=== PATIENT | female | born 1990 | race Caucasian/White ===

== ENCOUNTER 2016-10-21 10:27 | Emergency (ER) | payer OTHER ==
[2016-10-21] MEDS ORDERED: Zofran 4 MG/2 ML VIAL IV ONE (10:54)
[2016-10-21] MEDS ORDERED: Sodium Chloride 0.9% 1000 ML 1,000 ML IV SCH (11:00)
[2016-10-21] MEDS ORDERED: Zofran 4 MG/2 ML VIAL ONE (11:01)
[2016-10-21] MEDS ORDERED: Sodium Chloride 0.9% 1000 ML 1,000 ML ONE (11:02)
--- NOTE | 2016-10-21 11:05 | ERPHSYRPT ---
- History of Present Illness Time Seen by Provider: 10/21/16 10:31 Historian: patient, family Exam Limitations: no limitations Patient Subjective Stated Complaint: pt here for vomiting for 3 days more than 10 times,no loose stools, no fever , pt hasd positive test this week Triage Nursing Assessment: pt alert, walked in with water, pt asked not to drink water at this time, pt anxious, resp easy, skin w/d,pink, no and pain, abd soft Physician History: patient presenting with N&V since 10/03/16; no abdominal pain; LMP 08/29/16; had positive test on 10/03/16; hasn't seen anyone for since tested positive; [id number] 1; hasn't been able to keep anything down fo r2-3 days including water; no change in BM's; last sex a week ago- no pain or bleeding; last smoked pot 1 week ago; can't smoke cigarettes now as makes her sick; no travel; no other complaints Timing/Duration: week(s) (4 onset), constant (2-3 days), gradual onset, worse Activities at Onset: none Quality: other (no pain) Pain Radiation: no radiation Severity of Pain-Max: none Severity of Pain-Current: none Modifying Factors: Improves With: eating, vomiting, other (smoking) Associated Symptoms: loss of appetite, nausea, vomiting Previous symptoms: no prior history Allergies/Adverse Reactions: No Known Drug Allergies Allergy (Verified 10/21/16 10:54) Home Medications: Alprazolam 1 mg [Xanax 1 mg] 1 tab PO DAILY 05/06/14 [History] Venlafaxine HCl [Effexor] 150 mg PO DAILY 05/06/14 [History] Omeprazole [Prilosec] 20 mg PO DAILY 10/24/15 [History] Hydrocodone/APAP 10/325 mg [[place] 10/325 MG Tablet] 1 ea DAILY 10/21/16 [ History] Loratadine [Claritin] 10 mg DAILY 10/21/16 [History] Hx Tetanus, Diphtheria Vaccination/Date Given: Yes Hx Influenza Vaccination/Date Given: Yes Hx Pneumococcal Vaccination/Date Given: No Immunizations Up to Date: Yes - Review of Systems Constitutional: No Symptoms Eyes: No Symptoms Ears, Nose, & Throat: No Symptoms Respiratory: No Cough, No Dyspnea, No Wheezing Cardiac: No Chest Pain, No Edema, No Palpitations, No Syncope Abdominal/Gastrointestinal: Nausea, Vomiting, No Abdominal Pain, No Diarrhea, No Constipation, No Hematemesis, No Hematochezia Genitourinary Symptoms: No Symptoms Musculoskeletal: No Symptoms Skin: No Symptoms Neurological: No Symptoms Psychological: No Symptoms Endocrine: No Symptoms Hematologic/Lymphatic: No Symptoms Immunological/Allergic: No Symptoms - Past Medical History Pertinent Past Medical History: Yes Neurological History: Migraines ENT History: No Pertinent History Cardiac History: No Pertinent History Respiratory History: Asthma Endocrine Medical History: No Pertinent History Musculoskeletal History: No Pertinent History GI Medical History: GERD, Gallbladder Disease History: No Pertinent History Psycho-Social History: Anxiety, Bipolar Female Reproductive Disorders: No Pertinent History - Past Surgical History Past Surgical History: Yes Neuro Surgical History: No Pertinent History Cardiac: No Pertinent History Respiratory: No Pertinent History Gastrointestinal: Cholecystectomy Musculoskeletal: Other Female Surgical History: Section, Other Other Surgical History: etopic ,rt hand - Social History Smoking Status: Current every day smoker How long have you smoked: YRS Exposure to second hand smoke: Yes Alcohol Use: Socially Drug Use: marijuana Patient Lives Alone: No Significant Family History: no pertinent family hx - Female History Hx Last Menstrual Period: august 29 Hx Now: Yes - Nursing Vital Signs Nursing Vital Signs: Initial Vital Signs Temperature 98.1 F Temperature Source Oral Pulse Rate 66 Respiratory Rate 16 Blood Pressure [] 118/82 Pain Intensity 0 - Physical Exam General Appearance: mild distress (nauseated), alert, obese Eye Exam: PERRL/EOMI, eyes nml inspection, No photophobia Ears, Nose, Throat Exam: normal ENT inspection, TMs normal, pharynx normal, dry mucous membranes Neck Exam: normal inspection, non-tender, supple, full range of motion, No meningismus, No JVD Respiratory Exam: normal breath sounds, lungs clear, airway intact, No chest tenderness, No respiratory distress Cardiovascular Exam: regular rate/rhythm, normal heart sounds, normal peripheral pulses, capillary refill 2-3 sec, No murmur, No edema Gastrointestinal/Abdomen Exam: soft, normal bowel sounds, No tenderness, No distention, No guarding, No pulsatile mass, No rebound Pelvic Exam: normal external exam, other (Uterus enlarged midline consistent with dates of gravid uterus; cx closed; no FHT audible to me but good on US), No adnexal tenderness, No adnexal mass, No mass, No cervical motion tenderness, No vaginal bleeding, No uterine tenderness, No vaginal discharge Rectal Exam: deferred Back Exam: normal inspection, normal range of motion, No CVA tenderness, No rash Extremity Exam: normal inspection, normal range of motion, pedal edema, No jelena 's sign Neurologic Exam: alert, oriented x 3, cooperative, hardboard grinder II-XII nml as tested, normal mood/affect, nml cerebellar function, nml station & gait, sensation nml, other (reflexes normal) Skin Exam: normal color, warm, dry, No rash, No petechiae Lymphatic Exam: No adenopathy SpO2 Interpretation: normal SpO2: 97 Oxygen Delivery: Room Air - Course Nursing assessment & vital signs reviewed: Yes - Radiology Ultrasound Exam Pelvis Ultrasound: tele radiology report, Other (IUP 7 weeks adn 4 days; FHR = 157) Ordered Tests: Active Orders 24 hr Category Date Time Status Cath for Specimen-Straight STAT Care 10/21/16 10:54 Inactive IV Insertion STAT Care 10/21/16 10:54 Active NPO (ED) STAT Care 10/21/16 10:54 Active Pelvic Exam Assist STAT Care 10/21/16 10:54 Active Re-Check Vital Signs STAT Care 10/21/16 10:54 Active OB TRANSVAGINAL [US] Stat Exams 10/21/16 10:56 Completed CBC W DIFF Stat Lab 10/21/16 11:09 Completed CMP Stat Lab 10/21/16 11:09 Completed CULTURE,URINE Stat Lab 10/21/16 11:20 Received HCG QUALITATIVE,SERUM Stat Lab 10/21/16 11:09 Completed HCG, Quantitative (Inhouse) Stat Lab 10/21/16 11:09 Completed UA W/ MICROSCOPIC Stat Lab 10/21/16 11:20 Completed Wet Prep Stat Lab 10/21/16 12:37 Uncollected Medication Summary Generic Name Dose Route Start Last Admin Trade Name Freq PRN Reason Stop Dose Admin Sodium Chloride 1,000 mls @ 250 mls/hr 10/21/16 11:00 10/21/16 11:03 Sodium Chloride 0.9% 1000 Ml IV 11/20/16 10:59 250 mls/hr .Q4H SHARON Administration Discontinued Medications Generic Name Dose Route Start Last Admin Trade Name Roseann PRN Reason Stop Dose Admin Ondansetron HCl 4 mg 10/21/16 10:54 10/21/16 11:03 Zofran 4 Mg/2 Ml Vial IV 10/21/16 10:55 4 mg STAT ONE Administration Ondansetron HCl Confirm 10/21/16 11:01 Zofran 4 Mg/2 Ml Vial Administered 10/21/16 11:02 Dose 4 mg .ROUTE .STK-MED ONE Lab/Rad Data: Laboratory Result Diagrams 10/21/16 11:09 10/21/16 11:09 Laboratory Results 10/21/16 10/21/16 10/21/16 Range/Units 11:20 11:09 11:09 WBC (4.0-10.5) K/mm3 RBC (4.1-5.4) M/mm3 Hgb (12.0-16.0) gm/dl Hct (35-47) % MCV (78-100) fl MCH (26-32) pg MCHC (32-36) g/dl RDW (11.5-14.0) % Plt Count (150-450) K/mm3 MPV (6-9.5) fl Gran % (36.0-66.0) % Lymphocytes % (24.0-44.0) % Monocytes % (0.0-12.0) % Eosinophils % (0.00-5.0) % Basophils % (0.0-0.4) % Basophils # (0-0.4) Sodium 137 (136-145) mEq/L Potassium 3.7 (3.5-5.1) mEq/L Chloride 101 (98-107) mEq/L Carbon Dioxide 21.4 (21-32) mEq/L Anion Gap 17.9 H (5-15) MEQ/L BUN 11 (9-20) mg/dL Creatinine 0.69 (0.55-1.30) mg/dl Estimated GFR > 60 ML/MIN Glucose 95 (70-110) MG/DL Calcium 9.2 (8.5-10.1) mg/dL Total Bilirubin 0.60 (0.2-1.0) mg/dL AST 17 (15-37) U/L ALT 21 (12-78) U/L Alkaline Phosphatase 94 (46-116) U/L Serum Total Protein 8.3 H (6.4-8.2) gm/dL Albumin 4.0 (3.4-5.0) g/dL Beta HCG, Quant 83782 H (0-6) IU/L Serum , Qual POSITIVE (Negative) Ur Collection Type VOID Urine Color YELLOW (YELLOW) Urine Appearance CLEAR (CLEAR) Urine pH 5.0 (5-6) Ur Specific [place] 1.020 (1.005-1.025) Urine Protein TRACE (Negative) Urine Ketones MODERATE (NEGATIVE) Urine Blood NEGATIVE (0-5) [place]/ul Urine Nitrite NEGATIVE (NEGATIVE) Urine Bilirubin NEGATIVE (NEGATIVE) Urine Urobilinogen NORMAL (0-1) mg/dL Ur Leukocyte Esterase TRACE (NEGATIVE) Urine Microscopic RBC 0-2 (0-2) /HPF Urine Microscopic WBC 2-5 (0-5) /HPF Ur Epithelial Cells FEW (FEW) /HPF Urine Bacteria FEW (NEGATIVE) /HPF Urine Mucus MODERATE (NEGATIVE) /HPF Urine Glucose NEGATIVE (NEGATIVE) mg/dL Specimen Received 10/21/16 1120 10/21/16 Range/Units 11:09 WBC 9.5 (4.0-10.5) K/mm3 RBC 4.51 (4.1-5.4) M/mm3 Hgb 12.4 (12.0-16.0) gm/dl Hct 38.3 (35-47) % MCV 84.9 (78-100) fl MCH 27.5 (26-32) pg MCHC 32.4 (32-36) g/dl RDW 17.4 H (11.5-14.0) % Plt Count 309 (150-450) K/mm3 MPV 11.1 H (6-9.5) fl Gran % 69.1 H (36.0-66.0) % Lymphocytes % 20.4 L (24.0-44.0) % Monocytes % 6.6 (0.0-12.0) % Eosinophils % 3.5 (0.00-5.0) % Basophils % 0.4 (0.0-0.4) % Basophils # 0.04 (0-0.4) Sodium (136-145) mEq/L Potassium (3.5-5.1) mEq/L Chloride (98-107) mEq/L Carbon Dioxide (21-32) mEq/L Anion Gap (5-15) MEQ/L BUN (9-20) mg/dL Creatinine (0.55-1.30) mg/dl Estimated GFR ML/MIN Glucose (70-110) MG/DL Calcium (8.5-10.1) mg/dL Total Bilirubin (0.2-1.0) mg/dL AST (15-37) U/L ALT (12-78) U/L Alkaline Phosphatase (46-116) U/L Serum Total Protein (6.4-8.2) gm/dL Albumin (3.4-5.0) g/dL Beta HCG, Quant (0-6) IU/L Serum , Qual (Negative) Ur Collection Type Urine Color (YELLOW) Urine Appearance (CLEAR) Urine pH (5-6) Ur Specific [place] (1.005-1.025) Urine Protein (Negative) Urine Ketones (NEGATIVE) Urine Blood (0-5) [place]/ul Urine Nitrite (NEGATIVE) Urine Bilirubin (NEGATIVE) Urine Urobilinogen (0-1) mg/dL Ur Leukocyte Esterase (NEGATIVE) Urine Microscopic RBC (0-2) /HPF Urine Microscopic WBC (0-5) /HPF Ur Epithelial Cells (FEW) /HPF Urine Bacteria (NEGATIVE) /HPF Urine Mucus (NEGATIVE) /HPF Urine Glucose (NEGATIVE) mg/dL Specimen Received reviewed - Progress Progress: improved (after meds), re-examined (after IV fluids and meds) Progress Note: 10/21/16 11:08 family at bedside; will hydrate with IV fluids; give Zofran for N&V; check labs ; do pelvic exam; get US to evaluate the and recheck 10/21/16 11:09 discussed smoking cessation and to D/C THC 10/21/16 11:30 recheck after US, IV fluids and meds; still slightly nauseous but no emesis; shared results of US with patient and family; HCG pos; other labs pending; will recheck; PUS shows FHR 157 and 7 weeks and 4 days gestation 10/21/16 12:06 patient tolerated pelvic well; exam wnl; nausea resolved; no emesis; will give ice chips and crackers and recheck 10/21/16 12:41 rechecked; HCG Quant = [id number]; patient tolerated crackers and ice chips with water without emesis; treatment pland, d/c instructions given Counseled pt/family regarding: lab results, diagnosis, need for follow-up, rad results, smoking cessation - Departure Time of Disposition: 12:42 Departure Disposition: Home Clinical Impression: Hyperemesis, Condition: Stable Critical Care Time: No Referrals: SULTANA LR [Primary Care Provider] - Instructions: Hyperemesis Gravidarum, Diet Additional Instructions: clear diet; yogurt; gatorade; crackers; call LMD for followup and recheck Follow-up with family doctor as directed. Call for appointment. Return if any problems. If you smoke please stop. Call or follow up with your family doctor for assistance if you need it to stop. Please wear your seatbelt when driving. Have a nice day. Thank you for allowing us to participate in your care today. :o) Dr Riki Finney Prescriptions: Ondansetron [Zofran Odt] 4 mg PO Q4-6HPRN PRN #14 tab.rapdis PRN Reason: Nausea
[2016-10-21 11:22] LABS: BASOPHIL % 0.4 % (0.0-0.4); Eosinophil % 3.5 % (0.00-5.0); Granulocytes % 69.1 % (36.0-66.0); Lymphocytes % 20.4 % (24.0-44.0); Mean Cell Volume 84.9 fl (78-100); Mean Corpuscular Hemoglobin 27.5 pg (26-32); Mean Platelet Volume 11.1 fl (6-9.5); Monocytes % 6.6 % (0.0-12.0); Platelet Count 309 K/mm3 (150-450); Red Blood Count 4.51 M/mm3 (4.1-5.4); Red Cell Distribution Width 17.4 % (11.5-14.0); White Blood Count 9.5 K/mm3 (4.0-10.5)
[2016-10-21 11:24] LABS: ADD URINE CULTURE? YES (NO); Bilirubin NEGATIVE (NEGATIVE); Blood NEGATIVE Ery/ul (0-5); COMPLETE URINE MICROSCOPIC? YES; Collection Type VOID; Glucose NEGATIVE (NEGATIVE); Leukocyte Esterase TRACE (NEGATIVE)
[2016-10-21 11:40] LABS: Bacteria FEW /HPF (NEGATIVE); Epithelial Cells FEW /HPF (FEW); Mucus MODERATE /HPF (NEGATIVE)
[2016-10-21 12:07] LABS: ALKALINE PHOSPHATASE 94 U/L (46-116); ANION GAP 17.9 MEQ/L (5-15); BLOOD UREA NITROGEN 11 mg/dL (9-20); CHLORIDE 101 mEq/L (98-107); Carbon Dioxide 21.4 mEq/L (21-32); Glucose 95 MG/DL (70-110); HCG, Quantitative (Inhouse) 83337 IU/L (0-6); Potassium 3.7 mEq/L (3.5-5.1); SGOT/AST 17 U/L (15-37); SGPT/ALT 21 U/L (12-78); SODIUM 137 mEq/L (136-145); Total Protein 8.3 gm/dL (6.4-8.2)
--- NOTE | 2016-10-21 12:14 | XRAY ---
Indication: History ectopic . Two-dimensional transvaginal early OB ultrasound was performed. Comparison: None for this . There is a single intrauterine gestational sac with presence of a single pole and yolk sac. Mean sac diameter is 2.50 cm corresponding to 7 weeks 1 day. Mean crown-rump length is 1.46 cm corresponding to 7 weeks 6 days. heart rate 158 bpm. No abnormal subchorionic fluid. Left and right ovaries unremarkable. No suspicious adnexal mass or free fluid. Impression: Single viable intrauterine measuring 7 weeks 4 days. Expected date of confinement is June 05, 2017.
[2016-10-21 12:53] VITALS: BP 114/70; PULSE 72; O2SAT 98
[2016-10-21 14:28] LABS: CHLAMYDIA DNA NEGATIVE
== END 2016-10-21 12:53 | disposition home or self-care (01) ==
LOC: ED 10:27
DX: O21.0 Mild hyperemesis gravidarum (principal)
CPT/HCPCS: 36000; 36415; 76817; 80053; 81000; 84702; 84703; 85025; 87086; 87490; 87590; 96360; 96361; 96374; 99284; J2405

== ENCOUNTER 2017-03-02 14:05 | Observation (INO) | payer OTHER ==
[2017-03-02 16:16] LABS: Collection Type CLEAN CATCH; Leukocyte Esterase TRACE (NEGATIVE)
[2017-03-02 16:17] LABS: Bilirubin NEGATIVE (NEGATIVE); COMPLETE URINE MICROSCOPIC? YES; Glucose NEGATIVE (NEGATIVE)
[2017-03-02 16:23] LABS: Bacteria FEW /HPF (NEGATIVE); Epithelial Cells MANY /HPF (FEW); Mucus MANY /HPF (NEGATIVE)
[2017-03-02 17:02] VITALS: BP 110/59; PULSE 88
== END 2017-03-02 16:45 | disposition home or self-care (01) ==
LOC: MED SURG 14:05 → UNDOADMOB 14:05 → UNDODISOB 16:45
PROVIDERS: ADMIT Family Medicine; ATTEND Family Medicine
DX: Z34.82 Encounter for supervision of other normal pregnancy, second trimester (principal)
CPT/HCPCS: 80307; 81000; G0378

== ENCOUNTER 2017-05-24 00:18 | Inpatient (IN) | payer OTHER ==
[2017-05-24] MEDS ORDERED: Lactated Ringers 1,000 ML IV ONE (12:53)
[2017-05-24 13:38] LABS: BASOPHIL % 0.3 % (0.0-0.4); Basophil (Absolute #) 0.03 (0-0.4); Eosinophil (Absolute #) 0.19 (0-0.5); Granulocyte Absolute (ANC) 7.02 (1.4-6.9); Granulocytes % 73.1 % (36.0-66.0); Hematocrit 35.8 % (35-47); Hemoglobin 11.4 gm/dl (12.0-16.0); Lymphocyte (Absolute #) 1.65 (1.0-4.6); Lymphocytes % 17.2 % (24.0-44.0); Mean Cell Volume 90.4 fl (78-100); Mean Corpuscular Hgb Concent. 31.8 g/dl (32-36); Mean Platelet Volume 11.3 fl (6-9.5); Monocyte (Absolute #) 0.71 (0.0-1.3); Monocytes % 7.4 % (0.0-12.0); Platelet Count 239 K/mm3 (150-450); Red Blood Count 3.96 M/mm3 (4.1-5.4); Red Cell Distribution Width 15.5 % (11.5-14.0); White Blood Count 9.6 K/mm3 (4.0-10.5)
[2017-05-24 13:40] LABS: Mean Corpuscular Hemoglobin 28.7 pg (26-32)
[2017-05-24 14:15] LABS: ALBUMIN 2.6 g/dL (3.4-5.0); ALKALINE PHOSPHATASE 161 U/L (46-116); BLOOD UREA NITROGEN 5 mg/dL (9-20); CHLORIDE 104 mEq/L (98-107); Creatinine 1 0.63 mg/dl (0.55-1.30); EST GLOMERULAR FILTRATION RATE > 60 ML/MIN; Glucose 92 MG/DL (70-110); SGOT/AST 12 U/L (15-37); SGPT/ALT 15 U/L (12-78); SODIUM 136 mEq/L (136-145); Total Protein 7.4 gm/dL (6.4-8.2)
[2017-05-24] MEDS ORDERED: TYLENOL 325 MG PO PRN (15:16)
[2017-05-24] MEDS ORDERED: Tums EX 750 MG PO SCH (15:30)
[2017-05-24] MEDS ORDERED: Lactated Ringers 1,000 ML IV SCH (16:00)
[2017-05-24 19:44] LABS: Appearance SLIGHTLY CLOUDY (CLEAR); Bilirubin NEGATIVE (NEGATIVE); Blood NEGATIVE Ery/ul (0-5); Glucose NEGATIVE (NEGATIVE); Ketones NEGATIVE (NEGATIVE); Leukocyte Esterase NEGATIVE (NEGATIVE); Nitrite NEGATIVE (NEGATIVE); Protein,Urine Dip NEGATIVE (Negative); Specific Gravity 1.015 (1.005-1.025); Urobilinogen NORMAL mg/dL (0-1)
[2017-05-24 21:55] LABS: Hematocrit 34.4 % (35-47); Hemoglobin 10.8 gm/dl (12.0-16.0); Mean Cell Volume 90.8 fl (78-100); Mean Corpuscular Hgb Concent. 31.4 g/dl (32-36); Mean Platelet Volume 11.5 fl (6-9.5); Platelet Count 233 K/mm3 (150-450); Red Blood Count 3.79 M/mm3 (4.1-5.4); Red Cell Distribution Width 15.6 % (11.5-14.0); White Blood Count 9.2 K/mm3 (4.0-10.5)
[2017-05-24 22:01] LABS: Mean Corpuscular Hemoglobin 28.4 pg (26-32)
[2017-05-24 22:11] LABS: INR 1.04 (0.8-3.0)
[2017-05-24 22:14] LABS: PTT 24.9 SECONDS (25.3-37.0)
[2017-05-25 00:25] LABS: Amphetamine,Urine NEG. (NEGATIVE); Barbiturate,Urine NEG. (NEGATIVE); Benzodiazepine,Urine NEG. (NEGATIVE); Cocaine,Urine NEG. (NEGATIVE); Methadone,Urine NEG. (NEGATIVE); Opiate,Urine NEG. (NEGATIVE); PCP,Urine NEG. (NEGATIVE); THC,Urine POS. (NEGATIVE)
[2017-05-25] MEDS ORDERED: Lactated Ringers 1,000 ML IV SCH (05:00)
[2017-05-25] MEDS ORDERED: Lactated Ringers 1,000 ML IV ONE (05:00)
[2017-05-25] MEDS ORDERED: Reglan 10 MG/2 ML IV SCH (05:30)
[2017-05-25] MEDS ORDERED: Pepcid 20 MG VIAL IV SCH (05:30)
[2017-05-25] MEDS ORDERED: KEFZOL 1 GM ONE (06:18)
[2017-05-25] MEDS ORDERED: DEMEROL 50 MG ONE (08:31)
[2017-05-25] MEDS ORDERED: Narcan 0.4 MG/ML IV PRN (09:00)
[2017-05-25] MEDS ORDERED: Nubain 10 MG/ML IV PRN (09:00)
[2017-05-25] MEDS ORDERED: Anucort-HC SUPPOSITORY PR PRN (09:00)
[2017-05-25] MEDS ORDERED: MORPHINE SULFATE 2 MG INJ IV PRN (09:00)
[2017-05-25] MEDS ORDERED: CLARITIN 10 MG PO PRN (09:00)
[2017-05-25] MEDS ORDERED: DEMEROL 50 MG IV PRN (09:00)
[2017-05-25] MEDS ORDERED: HOLD NARCOTIC ANALGESICS AND SEDATIVES X24 HR MC PRN (09:00)
[2017-05-25] MEDS ORDERED: CORTISONE 1% CREAM TP PRN (09:00)
[2017-05-25] MEDS ORDERED: Zofran 4 MG/2 ML VIAL IV PRN (09:00)
[2017-05-25] MEDS ORDERED: LANSINOH 40 GM TOP PRN (09:00)
[2017-05-25] MEDS ORDERED: BENADRYL 50 MG/ML IV PRN (09:00)
[2017-05-25] MEDS ORDERED: TYLENOL EXTRA STRENGTH 500 MG PO PRN (09:00)
[2017-05-25] MEDS ORDERED: Dulcolax 10 MG SUPP PR PRN (09:00)
[2017-05-25] MEDS: FERREX 150 PO SCH (11:59)
[2017-05-25] MEDS: Colace 100 MG PO SCH ×2 (11:59→21:39)
[2017-05-25] MEDS ORDERED: Adacel Vial IM ONE (12:00)
--- NOTE | 2017-05-25 12:27 | OP ---
SURGERY DATE/TIME: 05/25/2017 0708 PREOPERATIVE DIAGNOSES: 1) History of prior section. 2) Anti-E antibody syndrome. 3) Gestational hypertension. 4) Desires permanent sterilization. POSTOPERATIVE DIAGNOSES: 1) History of prior section. 2) Anti-E antibody syndrome. 3) Gestational hypertension. 4) Desires permanent sterilization. PROCEDURES: 1) Repeat section. 2) Bilateral tubal ligation. SURGEON: Caio Cosme M.D. ESTIMATED BLOOD LOSS: 400 cc. URINE OUTPUT: 150 cc clear straw-colored urine. ANESTHESIA: Spinal by Aldo Aldana CRNA. SPECIMENS: Placenta was sent for pathology. Bilateral fallopian tube segments. DESCRIPTION OF PROCEDURE: After informed written consent was obtained, the patient was taken to the operating room. She underwent spinal anesthesia and was prepped and draped in the usual sterile fashion. After adequate level of anesthesia was assessed, a low transverse skin incision was made by knife and carried down to the subcutaneous fat to the level of the fascia. The fascia was nicked on both sides of the midline and extended using curved Puente scissors in horizontal fashion. The superior free edge of the fascia was grasped with Marielos clamps and the underlying rectus muscles were dissected free. The same was repeated inferiorly. The peritoneal cavity was entered bluntly and extended in horizontal fashion. Bladder blade was then created and reflected over the lower uterine segment. A transverse uterine incision was made by knife and carried down to the level of amniotic membranes which were artificially ruptured. Clear fluid was encountered. A viable male delivered from the vertex presentation with a strong cry immediately upon delivery. The cord was clamped and cut and he was handed off to the awaiting nursery team. The placenta was removed from the uterine cavity. The uterus was exteriorized. The uterine cavity was wiped free of blood and clot with lap sponge. Uterine incision was closed with #1 chromic in a running locked fashion with good closure and good hemostasis. Next, the left fallopian tube was identified and grasped with July. Electrocautery was used to make a window in the mesosalpinx. Proximal and distal ends were then ligated with chromic ties. Interceding tube segment was dissected free with Metzenbaum scissors. Free edge of the fallopian tube was then cauterized on both segments. The same was repeated on the right side with no complications. The posterior cul-de-sac was wiped free of blood and clot with moist lap sponge and the uterus was returned to the peritoneal cavity. Again the uterine incision was inspected and noted to be hemostatic with good closure. Lateral gutters were wiped free of blood and clot. Next, the fascia was closed with 0 Vicryl in a running locked fashion with good closure and good hemostasis. Subcutaneous fat was irrigated with warm, sterile saline and any areas of bleeding were cauterized with electrocautery. The skin layer was closed with 4-0 undyed Vicryl in running subcuticular fashion. Steri-Strips and occlusive dressing were placed over the incision and the patient was transferred to the recovery in excellent condition.
[2017-05-25 15:05] LABS: AB ID Interp Anti-E
[2017-05-25] MEDS ORDERED: Astramorph-Pf 5 MG/10 ML IV ONE (15:09)
[2017-05-25] MEDS ORDERED: Ephedrine Sulfate 50 MG/ML IV ONE (15:09)
[2017-05-25] MEDS ORDERED: TORAdol 30 mg Injection IV ONE (15:09)
[2017-05-25] MEDS ORDERED: Naropin 0.5% 30 ML VIAL IJ ONE (15:09)
[2017-05-25] MEDS ORDERED: Pitocin 10 UNITS/ML IV ONE (15:09)
[2017-05-25] MEDS ORDERED: Epinephrine Preservative Free 1 MG/ML IJ ONE (15:09)
[2017-05-25] MEDS: MOTRIN 400 MG PO PRN (15:51)
[2017-05-25 17:51] LABS: ABO TYPING AB; RH TYPING POSITIVE
[2017-05-25 17:52] LABS: Antibody Screen POSITIVE (NEGATIVE)
[2017-05-25] MEDS: Dextrose 5%-Lr IV Solution 1000 ML 1,000 ML IV SCH (18:41)
[2017-05-25] MEDS: PERCOCET TABLET 5/325MG PO PRN (20:19)
[2017-05-26] MEDS: Dextrose 5%-Lr IV Solution 1000 ML 1,000 ML IV SCH (02:36)
[2017-05-26] MEDS: PERCOCET TABLET 5/325MG PO PRN (05:29)
[2017-05-26 06:24] LABS: Hematocrit 27.6 % (35-47); Hemoglobin 8.6 gm/dl (12.0-16.0); Mean Cell Volume 92.6 fl (78-100); Mean Corpuscular Hemoglobin 28.8 pg (26-32); Mean Corpuscular Hgb Concent. 31.2 g/dl (32-36); Mean Platelet Volume 11.5 fl (6-9.5); Platelet Count 191 K/mm3 (150-450); Red Blood Count 2.98 M/mm3 (4.1-5.4); Red Cell Distribution Width 15.6 % (11.5-14.0); White Blood Count 6.5 K/mm3 (4.0-10.5)
[2017-05-26] MEDS ORDERED: Phenergan 25 MG INJ IM PRN (09:00)
[2017-05-26] MEDS ORDERED: DEMEROL 75 MG IM PRN (09:00)
[2017-05-26] MEDS: Colace 100 MG PO SCH ×2 (09:56→23:02)
[2017-05-26] MEDS: FERREX 150 PO SCH (09:57)
[2017-05-26] MEDS: NORCO 5/325 MG PO PRN ×3 (09:57→23:02)
[2017-05-26] MEDS: MOTRIN 400 MG PO PRN ×2 (11:52→20:01)
[2017-05-26 12:11] VITALS: O2SAT 99
[2017-05-26] MEDS: Mylicon 80MG PO PRN ×2 (13:14→20:02)
[2017-05-27] MEDS: NORCO 5/325 MG PO PRN (06:13)
--- NOTE | 2017-05-27 08:20 | PCM.DS ---
Discharge Summary Date of Admission: 05/25/17 00:18 Admitting Physician: KAREN DIAMOND Consults: Consults on Case 05/24/17 21:29 Notify Anesthesia Provider Primary Care Provider: KAREN DIAMOND Allergies Allergies No Known Drug Allergies Allergy (Verified 05/24/17 12:55) Hospital Summary - Hospital Course Hospital Course: had repeat c/s with BTL on 05/25/17 with no complications. doing well . she is well bonded with her male and well with no issues. - Vitals & Intake/Output Vital Signs: Vital Signs Temperature 98.3 F 05/27/17 06:15 Pulse Rate 93 H 05/27/17 06:15 Respiratory Rate 20 05/27/17 06:15 Blood Pressure 116/65 05/27/17 06:15 O2 Sat by Pulse Oximetry 99 05/26/17 05:00 Intake & Output: Intake & Output 05/24/17 05/25/17 05/26/17 05/27/17 11:59 11:59 11:59 11:59 Intake Total 2514 3391 1790 Output Total 3250 Balance 2514 141 1790 Weight 101.151 kg - Lab Result Diagrams: 05/26/17 05:04 05/24/17 12:30 Micro Results-Entire Visit: Microbiology 05/25/17 07:20 Urine Culture - Preliminary Catherized NO GROWTH TO DATE Discharge Exam General Appearance: no apparent distress, alert Neurologic Exam: alert, oriented x 3 Skin Exam: normal color, warm, dry Eye Exam: PERRL, EOMI, eyes nml inspection Respiratory Exam: normal breath sounds, lungs clear, No respiratory distress Cardiovascular Exam: regular rate/rhythm, normal heart sounds Gastrointestinal/Abdomen Exam: soft, other (incision clean, dry, intact and well approximated), No tenderness, No mass Extremity Exam: normal inspection, normal range of motion Final Diagnosis/Problem List - Final Discharge Diagnosis/Problem (1) delivery delivered Current Visit: Yes Status: Acute Assessment & Plan: doing well, no complications. (2) Tubal ligation status Current Visit: Yes Status: Acute (3) () Current Visit: Yes Status: Acute Assessment & Plan: rx for breast pump sent - Discharge Disposition: Home, Self-Care Condition: Stable Prescriptions: New Breast Pump 1 each UD #1 each Hydrocodone/Acetaminophen [[place] 5-325 Tablet] 1 each PO Q4-6HPRN PRN #20 tablet MDD 6 PRN Reason: Pain Continue Vits W-Ca,Fe,FA(<1Mg) [] 1 each PO BID Discontinued Doxylamine Succinate/Vit B6 [Diclegis Dr 10-10 mg Tablet] 1 tablet PO BID PRN PRN Reason: Nausea/Vomiting Follow up with: KAREN DIAMOND MD [Primary Care Provider] - 1 Week
[2017-05-27 11:02] VITALS: BP 155/70; PULSE 103
== END 2017-05-27 09:30 | disposition home or self-care (01) | DRG 766 ==
LOC: OB 00:18 → OBSVTOIN 05-25 00:18
PROVIDERS: ADMIT Family Medicine; ATTEND Family Medicine
PROC: 0UL70ZZ Occlusion of Bilateral Fallopian Tubes, Open Approach (ICD-10-PCS; principal; 2017-05-25)
PROC: 10D00Z1 Extraction of Products of Conception, Low, Open Approach (ICD-10-PCS; 2017-05-25)
DX: O34.211 Maternal care for low transverse scar from previous cesarean delivery (principal); O36.1930 Maternal care for other isoimmunization, third trimester, not applicable or unspecified; O13.4 Gestational [pregnancy-induced] hypertension without significant proteinuria, complicating childbirth; Z3A.38 38 weeks gestation of pregnancy; Z37.0 Single live birth; Z30.2 Encounter for sterilization
CPT/HCPCS: 01961; 36415; 62322; 64488; 76937; 76942; 80053; 80307; 81002; 84550; 85025; 85027; 85610; 85730; 86850; 86870; 86900; 86901; 87086; 88302; 88307; 90471; 90715; 94799; G0378; J0171; J0690; J1885; J2175; J2274; J2405; J2590; J2795; L0625; A9270-GY

== ENCOUNTER 2017-07-01 11:46 | Inpatient (IN) | payer OTHER ==
[2017-07-01] MEDS ORDERED: FEVERALL 650 MG PR STA (11:58)
[2017-07-01] MEDS ORDERED: Lactated Ringers 1,000 ML IV SCH (12:00)
[2017-07-01] MEDS ORDERED: FEVERALL 650 MG ONE (12:02)
[2017-07-01] MEDS ORDERED: Lactated Ringers 1,000 ML IV ONE (12:02)
--- NOTE | 2017-07-01 12:06 | ERPHSYRPT ---
- History of Present Illness Time Seen by Provider: 07/01/17 11:48 Source: patient Physician History: CC: chest pain Hx: 27 y/o patient 5 weeks post sent from [facility] office. She has 4 days of sharp chest pain, radiating to her back. Worse with lying down or deep breaths. She has had vomiting and diarrhea for 2 days. Her whole household has had this illness with V/D. She has fever. Has tried APAP but vomited it up. Symptoms are severe. She is breathless. ALL: None Meds: None Surg: C/S, BTL, GB, hand Social: quit smoking 10 months ago. No alcohol. Here with long time partner. ILL: No hx of venous thromboembolic disease, heart disease. She had induced HTN and anti-E ab syndrome. Allergies/Adverse Reactions: No Known Drug Allergies Allergy (Verified 05/24/17 12:55) Home Medications: No Reportable Medications [No Reported Medications] 07/01/17 [History] Hx Tetanus, Diphtheria Vaccination/Date Given: Yes Hx Influenza Vaccination/Date Given: Yes Hx Pneumococcal Vaccination/Date Given: No - Review of Systems Constitutional: Fever, Chills, Fatigue, Malaise, Weakness Eyes: No Symptoms Ears, Nose, & Throat: No Symptoms Respiratory: Dyspnea, No Cough Cardiac: Chest Pain, No Syncope Abdominal/Gastrointestinal: Nausea, Vomiting, Diarrhea, No Abdominal Pain Genitourinary Symptoms: No Dysuria, No Musculoskeletal: Back Pain Skin: No Rash Neurological: No Focal Weakness, No Headache, No Parasthesia All Other Systems: Reviewed and Negative - Past Medical History Pertinent Past Medical History: Yes Neurological History: Migraines ENT History: No Pertinent History Cardiac History: No Pertinent History Respiratory History: Asthma Endocrine Medical History: No Pertinent History Musculoskeletal History: No Pertinent History GI Medical History: GERD, Gallbladder Disease History: No Pertinent History Psycho-Social History: Anxiety, Panic Disorder Female Reproductive Disorders: No Pertinent History - Past Surgical History Past Surgical History: Yes Neuro Surgical History: No Pertinent History Cardiac: No Pertinent History Respiratory: No Pertinent History Gastrointestinal: Cholecystectomy Musculoskeletal: Other Female Surgical History: Section, Other Other Surgical History: etopic ,rt hand - Social History Smoking Status: Former smoker How long have you smoked: YRS Exposure to second hand smoke: Yes Alcohol Use: Socially Drug Use: none Patient Lives Alone: No Significant Family History: no pertinent family hx - Female History Hx Now: No - Nursing Vital Signs Nursing Vital Signs: Initial Vital Signs Temperature 101.6 F 07/01/17 11:48 Pulse Rate 128 H 07/01/17 11:48 Respiratory Rate 26 H 07/01/17 11:48 Blood Pressure 96/60 07/01/17 11:48 O2 Sat by Pulse Oximetry 98 07/01/17 11:48 Pain Scale Pain Intensity 6 - Physical Exam General Appearance: alert, other (anxious and breathless) Eye Exam: PERRL/EOMI Ears, Nose, Throat Exam: normal ENT inspection, moist mucous membranes Neck Exam: normal inspection, non-tender, supple Respiratory Exam: normal breath sounds, other (tachypenic) Cardiovascular Exam: regular rate/rhythm, tachycardia, No murmur, No friction rub Gastrointestinal/Abdomen Exam: soft, other (incision well healed), No tenderness , No distention, No mass, No guarding Back Exam: normal inspection, other (diffuse discomfort) Extremity Exam: normal inspection, normal range of motion, No calf tenderness, No pedal edema Neurologic Exam: alert, oriented x 3, cooperative, institutional cook II-XII nml as tested, sensation nml, No motor deficits Skin Exam: warm, dry, No rash SpO2 Interpretation: normal SpO2: 99 Oxygen Delivery: Room Air - Course Nursing assessment & vital signs reviewed: Yes EKG Interpreted by Me: RATE (121), Sinus Tach, NORMAL INTERVALS (QTc 438), Other (SIQIII) - Radiology Exams cxr X-ray Interpretation: Teleradiologist Report (new subtle asymetric right base infiltrate vs atelectasis) Ordered Tests: Active Orders 24 hr Category Date Time Status Cath for Specimen-Straight STAT Care 07/01/17 11:57 Active EKG-ER Only STAT Care 07/01/17 11:56 Active IV Insertion STAT Care 07/01/17 11:56 Active NPO (ED) STAT Care 07/01/17 11:57 Active CHEST 1 VIEW (PORTABLE) Stat Exams 07/01/17 11:57 Completed CHEST WITH CONTRAST [CT] Stat Exams 07/01/17 12:36 Completed ARTERIAL BLOOD GASES Stat Lab 07/01/17 12:06 Completed BLOOD CULTURE Stat Lab 07/01/17 12:40 Received CBC W DIFF Stat Lab 07/01/17 12:00 Completed CMP Stat Lab 07/01/17 12:00 Completed CULTURE,URINE Stat Lab 07/01/17 12:30 Received Erythrocyte Sedimentation Rate Stat Lab 07/01/17 12:20 Completed HCG, Quantitative (Inhouse) Stat Lab 07/01/17 12:00 Completed LIPASE Stat Lab 07/01/17 12:00 Completed Lactic Acid Stat Lab 07/01/17 12:06 Completed PROTIME WITH INR Stat Lab 07/01/17 12:00 Completed PTT Stat Lab 07/01/17 12:00 Completed TROPONIN Q3H Lab 07/01/17 12:20 Completed TROPONIN Q3H Lab 07/01/17 14:43 Completed TROPONIN Q3H Lab 07/01/17 18:00 Ordered TROPONIN Q3H Lab 07/01/17 21:00 Ordered TROPONIN Q3H Lab 07/02/17 00:00 Ordered UA W/ MICROSCOPIC Stat Lab 07/01/17 12:30 Completed Medication Summary Generic Name Dose Route Start Last Admin Trade Name Freq PRN Reason Stop Dose Admin Enoxaparin Sodium 90 mg 07/01/17 15:15 Enoxaparin Sodium 1 mg/kg (90 mg) 07/31/17 15:14 SQ Q12H SHARON Lactated Ringer's 1,000 mls @ 50 mls/hr 07/01/17 12:00 07/01/17 12:06 Lactated Ringers IV 07/31/17 11:59 50 mls/hr .Q20H SHARON Administration Ceftriaxone Sodium/Dextrose 1 g in 50 mls @ 100 mls/hr 07/01/17 15:24 Rocephin 1 Gm-D5w 50 Ml Bag IV 07/01/17 15:53 STAT STA Azithromycin 500 mg in 250 mls @ 250 mls/hr 07/01/17 15:24 Zithromax 500 Mg/ 250 Ml Nacl Premix IV 07/01/17 16:23 STAT STA Discontinued Medications Generic Name Dose Route Start Last Admin Trade Name Freq PRN Reason Stop Dose Admin Acetaminophen 975 mg 07/01/17 11:58 07/01/17 12:05 Feverall 650 Mg [place] 07/01/17 11:59 975 mg STAT STA Administration Acetaminophen Confirm 07/01/17 12:02 Feverall 650 Mg Administered 07/01/17 12:03 Dose 1,300 mg .ROUTE .STK-MED ONE Fentanyl Citrate 50 mcg 07/01/17 12:57 07/01/17 13:02 Sublimaze 100 Mcg/2 Ml IV 07/01/17 12:58 50 mcg STAT ONE Administration Fentanyl Citrate Confirm 07/01/17 13:02 Sublimaze 100 Mcg/2 Ml Administered 07/01/17 13:03 Dose 100 mcg .ROUTE .STK-MED ONE Fentanyl Citrate 100 mcg 07/01/17 13:29 07/01/17 13:31 Sublimaze 100 Mcg/2 Ml IV 07/01/17 13:30 100 mcg STAT ONE Administration Fentanyl Citrate Confirm 07/01/17 13:30 Sublimaze 100 Mcg/2 Ml Administered 07/01/17 13:31 Dose 100 mcg .ROUTE .STK-MED ONE Fentanyl Citrate 50 mcg 07/01/17 15:15 Sublimaze 100 Mcg/2 Ml IV 07/01/17 15:16 STAT ONE Promethazine HCl 25 mg 07/01/17 12:11 07/01/17 12:18 Phenergan 25 Mg Inj IM 07/01/17 12:12 25 mg STAT ONE Administration Promethazine HCl Confirm 07/01/17 12:13 Phenergan 25 Mg Inj Administered 07/01/17 12:14 Dose 25 mg .ROUTE .STK-MED ONE Lab/Rad Data: Laboratory Result Diagrams 07/01/17 12:00 07/01/17 12:00 Laboratory Results 07/01/17 07/01/17 07/01/17 Range/Units 14:43 12:30 12:20 WBC (4.0-10.5) K/mm3 RBC (4.1-5.4) M/mm3 Hgb (12.0-16.0) gm/dl Hct (35-47) % MCV (78-100) fl MCH (26-32) pg MCHC (32-36) g/dl RDW (11.5-14.0) % Plt Count (150-450) K/mm3 MPV (6-9.5) fl Gran % (36.0-66.0) % Lymphocytes % (24.0-44.0) % Monocytes % (0.0-12.0) % Eosinophils % (0.00-5.0) % Basophils % (0.0-0.4) % Basophils # (0-0.4) ESR 83 H (0-20) mm/hr INR (0.8-3.0) APTT (25.3-37.0) SECONDS Puncture Site pCO2 (35-45) mmHg pO2 (75-100) mmHg Base Excess (-2.0-2.0) O2 Saturation (94-100) g/dF ABG pH (7.35-7.45) ABG HCO3 (22-28) ABG O2 Sat (Measured) (95-100) % Ino Test A-a Gradient a/A Ratio Hemoglobin Carboxyhemoglobin (0.0-6.9) % THgb Methemoglobin (1.4-1.5) % Temperature C POC O2 Flow Rate % Sodium (137-145) mmol/L Potassium (3.5-5.1) mmol/L Chloride (98-107) mmol/L Carbon Dioxide (22-30) mmol/L Anion Gap (5-15) MEQ/L BUN (7-17) mg/dL Creatinine (0.52-1.04) mg/dL Estimated GFR ML/MIN Glucose (74-106) mg/dL Lactic Acid (0.4-2.0) Calcium (8.4-10.2) mg/dL Total Bilirubin (0.2-1.3) mg/dL AST (14-36) U/L ALT (0-35) U/L Alkaline Phosphatase (38-126) U/L Troponin I < 0.012 (0.000-0.034) ng/mL Serum Total Protein (6.3-8.2) g/dL Albumin (3.5-5.0) g/dL Lipase (23-300) U/L Beta HCG, Quant (0-25) mIU/ml Ur Collection Type CATH Urine Color YELLOW (YELLOW) Urine Appearance CLEAR (CLEAR) Urine pH 5.0 (5-6) Ur Specific [place] 1.010 (1.005-1.025) Urine Protein TRACE (Negative) Urine Ketones NEGATIVE (NEGATIVE) Urine Blood 5-10 (0-5) [place]/ul Urine Nitrite NEGATIVE (NEGATIVE) Urine Bilirubin SMALL (NEGATIVE) Urine Urobilinogen NORMAL (0-1) mg/dL Ur Leukocyte Esterase TRACE (NEGATIVE) Urine Microscopic WBC 5-10 (0-5) /HPF Urine Bacteria FEW (NEGATIVE) /HPF Urine Mucus MANY (NEGATIVE) /HPF Urine Culture Reflexed YES (NO) Urine Glucose NEGATIVE (NEGATIVE) mg/dL Influenza Type A Ag (NEGATIVE) Influenza Type B Ag (NEGATIVE) RSV (PCR) (Negative) Specimen Received 07/01/17 1230 07/01/17 07/01/17 07/01/17 Range/Units 12:20 12:06 12:06 WBC (4.0-10.5) K/mm3 RBC (4.1-5.4) M/mm3 Hgb (12.0-16.0) gm/dl Hct (35-47) % MCV (78-100) fl MCH (26-32) pg MCHC (32-36) g/dl RDW (11.5-14.0) % Plt Count (150-450) K/mm3 MPV (6-9.5) fl Gran % (36.0-66.0) % Lymphocytes % (24.0-44.0) % Monocytes % (0.0-12.0) % Eosinophils % (0.00-5.0) % Basophils % (0.0-0.4) % Basophils # (0-0.4) ESR (0-20) mm/hr INR (0.8-3.0) APTT (25.3-37.0) SECONDS Puncture Site RIGHT RADIAL pCO2 21 L (35-45) mmHg pO2 86 (75-100) mmHg Base Excess 1.5 (-2.0-2.0) O2 Saturation 94.9 (94-100) g/dF ABG pH 7.61 H* (7.35-7.45) ABG HCO3 21.1 L (22-28) ABG O2 Sat (Measured) 98.3 (95-100) % Ino Test YES A-a Gradient 37 a/A Ratio 0.70 Hemoglobin 13.0 Carboxyhemoglobin 1.9 (0.0-6.9) % THgb Methemoglobin 1.6 H (1.4-1.5) % Temperature 37.0 C POC O2 Flow Rate 21 % Sodium (137-145) mmol/L Potassium 3.2 L (3.5-5.1) mmol/L Chloride (98-107) mmol/L Carbon Dioxide (22-30) mmol/L Anion Gap (5-15) MEQ/L BUN (7-17) mg/dL Creatinine (0.52-1.04) mg/dL Estimated GFR ML/MIN Glucose (74-106) mg/dL Lactic Acid 0.9 (0.4-2.0) Calcium (8.4-10.2) mg/dL Total Bilirubin (0.2-1.3) mg/dL AST (14-36) U/L ALT (0-35) U/L Alkaline Phosphatase (38-126) U/L Troponin I < 0.012 (0.000-0.034) ng/mL Serum Total Protein (6.3-8.2) g/dL Albumin (3.5-5.0) g/dL Lipase (23-300) U/L Beta HCG, Quant (0-25) mIU/ml Ur Collection Type Urine Color (YELLOW) Urine Appearance (CLEAR) Urine pH (5-6) Ur Specific [place] (1.005-1.025) Urine Protein (Negative) Urine Ketones (NEGATIVE) Urine Blood (0-5) Rosalino/ul Urine Nitrite (NEGATIVE) Urine Bilirubin (NEGATIVE) Urine Urobilinogen (0-1) mg/dL Ur Leukocyte Esterase (NEGATIVE) Urine Microscopic WBC (0-5) /HPF Urine Bacteria (NEGATIVE) /HPF Urine Mucus (NEGATIVE) /HPF Urine Culture Reflexed (NO) Urine Glucose (NEGATIVE) mg/dL Influenza Type A Ag (NEGATIVE) Influenza Type B Ag (NEGATIVE) RSV (PCR) (Negative) Specimen Received 07/01/17 07/01/17 07/01/17 Range/Units 12:00 12:00 12:00 WBC (4.0-10.5) K/mm3 RBC (4.1-5.4) M/mm3 Hgb (12.0-16.0) gm/dl Hct (35-47) % MCV (78-100) fl MCH (26-32) pg MCHC (32-36) g/dl RDW (11.5-14.0) % Plt Count (150-450) K/mm3 MPV (6-9.5) fl Gran % (36.0-66.0) % Lymphocytes % (24.0-44.0) % Monocytes % (0.0-12.0) % Eosinophils % (0.00-5.0) % Basophils % (0.0-0.4) % Basophils # (0-0.4) ESR (0-20) mm/hr INR 1.19 (0.8-3.0) APTT 28.5 (25.3-37.0) SECONDS Puncture Site pCO2 (35-45) mmHg pO2 (75-100) mmHg Base Excess (-2.0-2.0) O2 Saturation (94-100) g/dF ABG pH (7.35-7.45) ABG HCO3 (22-28) ABG O2 Sat (Measured) (95-100) % Ino Test A-a Gradient a/A Ratio Hemoglobin Carboxyhemoglobin (0.0-6.9) % THgb Methemoglobin (1.4-1.5) % Temperature C POC O2 Flow Rate % Sodium 137 (137-145) mmol/L Potassium 3.3 L (3.5-5.1) mmol/L Chloride 100 (98-107) mmol/L Carbon Dioxide 22 (22-30) mmol/L Anion Gap 18.4 H (5-15) MEQ/L BUN 7 (7-17) mg/dL Creatinine 0.78 (0.52-1.04) mg/dL Estimated GFR > 60 ML/MIN Glucose 99 (74-106) mg/dL Lactic Acid (0.4-2.0) Calcium 9.6 (8.4-10.2) mg/dL Total Bilirubin 0.60 (0.2-1.3) mg/dL AST 9 L (14-36) U/L ALT 10 (0-35) U/L Alkaline Phosphatase 139 H (38-126) U/L Troponin I (0.000-0.034) ng/mL Serum Total Protein 8.5 H (6.3-8.2) g/dL Albumin 4.3 (3.5-5.0) g/dL Lipase 28 (23-300) U/L Beta HCG, Quant < 2.39 (0-25) mIU/ml Ur Collection Type Urine Color (YELLOW) Urine Appearance (CLEAR) Urine pH (5-6) Ur Specific [place] (1.005-1.025) Urine Protein (Negative) Urine Ketones (NEGATIVE) Urine Blood (0-5) Rosalino/ul Urine Nitrite (NEGATIVE) Urine Bilirubin (NEGATIVE) Urine Urobilinogen (0-1) mg/dL Ur Leukocyte Esterase (NEGATIVE) Urine Microscopic WBC (0-5) /HPF Urine Bacteria (NEGATIVE) /HPF Urine Mucus (NEGATIVE) /HPF Urine Culture Reflexed (NO) Urine Glucose (NEGATIVE) mg/dL Influenza Type A Ag NEGATIVE (NEGATIVE) Influenza Type B Ag NEGATIVE (NEGATIVE) RSV (PCR) NEGATIVE (Negative) Specimen Received 07/01/17 Range/Units 12:00 WBC 10.0 (4.0-10.5) K/mm3 RBC 4.61 (4.1-5.4) M/mm3 Hgb 12.5 (12.0-16.0) gm/dl Hct 38.8 (35-47) % MCV 84.2 (78-100) fl MCH 27.1 (26-32) pg MCHC 32.2 (32-36) g/dl RDW 16.1 H (11.5-14.0) % Plt Count 274 (150-450) K/mm3 MPV 11.4 H (6-9.5) fl Gran % 89.5 H (36.0-66.0) % Lymphocytes % 7.2 L (24.0-44.0) % Monocytes % 2.6 (0.0-12.0) % Eosinophils % 0.6 (0.00-5.0) % Basophils % 0.1 (0.0-0.4) % Basophils # 0.01 (0-0.4) ESR (0-20) mm/hr INR (0.8-3.0) APTT (25.3-37.0) SECONDS Puncture Site pCO2 (35-45) mmHg pO2 (75-100) mmHg Base Excess (-2.0-2.0) O2 Saturation (94-100) g/dF ABG pH (7.35-7.45) ABG HCO3 (22-28) ABG O2 Sat (Measured) (95-100) % Ino Test A-a Gradient a/A Ratio Hemoglobin Carboxyhemoglobin (0.0-6.9) % THgb Methemoglobin (1.4-1.5) % Temperature C POC O2 Flow Rate % Sodium (137-145) mmol/L Potassium (3.5-5.1) mmol/L Chloride (98-107) mmol/L Carbon Dioxide (22-30) mmol/L Anion Gap (5-15) MEQ/L BUN (7-17) mg/dL Creatinine (0.52-1.04) mg/dL Estimated GFR ML/MIN Glucose (74-106) mg/dL Lactic Acid (0.4-2.0) Calcium (8.4-10.2) mg/dL Total Bilirubin (0.2-1.3) mg/dL AST (14-36) U/L ALT (0-35) U/L Alkaline Phosphatase (38-126) U/L Troponin I (0.000-0.034) ng/mL Serum Total Protein (6.3-8.2) g/dL Albumin (3.5-5.0) g/dL Lipase (23-300) U/L Beta HCG, Quant (0-25) mIU/ml Ur Collection Type Urine Color (YELLOW) Urine Appearance (CLEAR) Urine pH (5-6) Ur Specific [place] (1.005-1.025) Urine Protein (Negative) Urine Ketones (NEGATIVE) Urine Blood (0-5) Rosal[place]/ul Urine Nitrite (NEGATIVE) Urine Bilirubin (NEGATIVE) Urine Urobilinogen (0-1) mg/dL Ur Leukocyte Esterase (NEGATIVE) Urine Microscopic WBC (0-5) /HPF Urine Bacteria (NEGATIVE) /HPF Urine Mucus (NEGATIVE) /HPF Urine Culture Reflexed (NO) Urine Glucose (NEGATIVE) mg/dL Influenza Type A Ag (NEGATIVE) Influenza Type B Ag (NEGATIVE) RSV (PCR) (Negative) Specimen Received - Progress Progress Note: 07/01/17 12:56 No CM to suggest large pericardial effusion or cardiomyopathy. She has hyperventilation. Some nausea. Will get CTA to rule out PE. 07/01/17 15:[address] Diamond. Will place in tele obs and start lovenox and cover with rocpehin/zithromax. Urine and blood cx pending. Symptoms mostly from PE. Will see patient in: hospital (observation) Counseled pt/family regarding: lab results, diagnosis, need for follow-up, rad results - Departure Time of Disposition: 15:25 Departure Disposition: Observation (Tele) Clinical Impression: delivery delivered, Pneumonia, UTI (urinary tract infection), Vomiting and diarrhea Pulmonary emboli Qualifiers: Pulmonary embolism type: other Chronicity: acute Acute cor pulmonale presence: without acute cor pulmonale Qualified Code(s): I26.99 - Other pulmonary embolism without acute cor pulmonale Condition: Fair Critical Care Time: No Referrals: KAREN DIAMOND MD [Primary Care Provider] -
[2017-07-01 12:10] LABS: A-aADO2 37; ABG POTASSIUM 3.2 (3.5-5.1); ARTERIAL BLD GAS O2 SATURATION 98.3 % (95-100); ARTERIAL BLOOD GAS BASE EXCESS 1.5 (-2.0-2.0); ARTERIAL BLOOD GAS FIO2 21 %; ARTERIAL BLOOD GAS PCO2 21 mmHg (35-45); ARTERIAL BLOOD GAS PO2 86 mmHg (75-100); CARBOXYHEMOGLOBIN 1.9 % THgb (0.0-6.9); HCO3- 21.1 (22-28); HGB O2 SAT 94.9 g/dF (94-100); Methhemoglobin 1.6 % (1.4-1.5)
[2017-07-01 12:11] LABS: ABG SITE RIGHT RADIAL; ALLEN TEST OK? YES; ARTERIAL BLOOD GAS pH 7.61 (7.35-7.45)
[2017-07-01] MEDS ORDERED: Phenergan 25 MG INJ IM ONE (12:11)
[2017-07-01] MEDS ORDERED: Phenergan 25 MG INJ ONE (12:13)
--- NOTE | 2017-07-01 12:16 | XRAY ---
Indication: chest pain, fever, and short of breath. Comparison: May 30, 2009. Portable chest demonstrates new subtle asymmetric right base infiltrate versus atelectasis. Remaining heart, lungs, and bony thorax normal.
[2017-07-01 12:36] LABS: BASOPHIL % 0.1 % (0.0-0.4); Basophil (Absolute #) 0.01 (0-0.4); Eosinophil % 0.6 % (0.00-5.0); Eosinophil (Absolute #) 0.06 (0-0.5); Granulocyte Absolute (ANC) 8.98 (1.4-6.9); Granulocytes % 89.5 % (36.0-66.0); Hematocrit 38.8 % (35-47); Hemoglobin 12.5 gm/dl (12.0-16.0); Lymphocyte (Absolute #) 0.72 (1.0-4.6); Lymphocytes % 7.2 % (24.0-44.0); Mean Cell Volume 84.2 fl (78-100); Mean Corpuscular Hemoglobin 27.1 pg (26-32); Mean Corpuscular Hgb Concent. 32.2 g/dl (32-36); Mean Platelet Volume 11.4 fl (6-9.5); Monocyte (Absolute #) 0.26 (0.0-1.3); Monocytes % 2.6 % (0.0-12.0); Platelet Count 274 K/mm3 (150-450); Red Blood Count 4.61 M/mm3 (4.1-5.4); Red Cell Distribution Width 16.1 % (11.5-14.0)
[2017-07-01 12:48] LABS: Appearance CLEAR (CLEAR); Bacteria FEW /HPF (NEGATIVE); Bilirubin SMALL (NEGATIVE); Glucose NEGATIVE (NEGATIVE); Ketones NEGATIVE (NEGATIVE); Leukocyte Esterase TRACE (NEGATIVE); Mucus MANY /HPF (NEGATIVE); Nitrite NEGATIVE (NEGATIVE); Protein,Urine Dip TRACE (Negative); Urobilinogen NORMAL mg/dL (0-1)
[2017-07-01 12:52] LABS: INR 1.19 (0.8-3.0)
[2017-07-01 12:55] LABS: PTT 28.5 SECONDS (25.3-37.0)
[2017-07-01 12:57] LABS: ALBUMIN 4.3 g/dL (3.5-5.0); ALKALINE PHOSPHATASE 139 U/L (38-126); ANION GAP 18.4 MEQ/L (5-15); BLOOD UREA NITROGEN 7 mg/dL (7-17); CHLORIDE 100 mmol/L (98-107); Calcium 9.6 mg/dL (8.4-10.2); Carbon Dioxide 22 mmol/L (22-30); Creatinine 1 0.78 mg/dL (0.52-1.04); Glucose 99 mg/dL (74-106); LIPASE 28 U/L (23-300); Potassium 3.3 mmol/L (3.5-5.1); SGOT/AST 9 U/L (14-36); SGPT/ALT 10 U/L (0-35); SODIUM 137 mmol/L (137-145); Total Protein 8.5 g/dL (6.3-8.2)
[2017-07-01] MEDS ORDERED: SUBLIMAZE 100 MCG/2 ML IV ONE ×3 (12:57→15:15)
[2017-07-01] MEDS ORDERED: SUBLIMAZE 100 MCG/2 ML ONE ×3 (13:02→15:46)
[2017-07-01 13:06] LABS: INFLUENZA A NEGATIVE (NEGATIVE); INFLUENZA B NEGATIVE (NEGATIVE); RESPIRATORY SYNCTIAL VIRUS NEGATIVE (Negative)
[2017-07-01 13:14] LABS: HCG, Quantitative (Inhouse) < 2.39 mIU/ml (0-25)
--- NOTE | 2017-07-01 14:13 | XRAY ---
Indication: right-sided chest pain and short of breath. Multiple contiguous axial images obtained through the chest using 80 cc Isovue 370 contrast and PE protocol. Comparison: None There is satisfactory opacification of the pulmonary arteries. Nonoccluding pulmonary emboli seen in all the segmental branches of the right lower lobe and lesser degree left lower lobe. Heart is not enlarged. Aorta is normal in course and caliber. No pathologic mediastinal/hilar lymphadenopathy. Examination of the lung parenchyma demonstrates posterior right lower lobe alveolar opacity with lesser degree in the medial right middle lobe with tiny effusion. Minimal anterior medial left upper lobe fibrosis/scarring. Bony thorax intact with minimal degenerative changes throughout the spine. Limited upper abdomen demonstrates 13.5 cm splenomegaly. Impression: 1. Nonoccluding bilateral lower lobe pulmonary emboli. No distal infarct. 2. Right middle and right lower lobe airspace disease with tiny effusion. 3. incidental splenomegaly. CT DI 22.25
[2017-07-01] MEDS ORDERED: ENOXAPARIN SODIUM SQ SCH (15:15)
[2017-07-01] MEDS ORDERED: Zithromax 500 MG/ 250 ML NaCl Premix 500 MG/250 ML IVPB IV STA (15:24)
[2017-07-01] MEDS ORDERED: ROCEPHIN 1 Gm-D5w 50 ml Bag** 1 G/50 ML IVPB IV STA (15:24)
[2017-07-01] MEDS ORDERED: ROCEPHIN 1 Gm-D5w 50 ml Bag** 1 G/50 ML IVPB IV ONE (15:46)
[2017-07-01] MEDS ORDERED: TYLENOL 325 MG PO PRN (16:53)
[2017-07-01] MEDS: D5W/0.45NS W/ 20mEq KCl 1000 ML 1,000 ML IV SCH (17:43)
[2017-07-01] MEDS: Zithromax 500 MG/ 250 ML NaCl Premix 500 MG/250 ML IVPB IV SCH (17:43)
[2017-07-01] MEDS ORDERED: MORPHINE SULFATE 4 MG INJ IV PRN (19:00)
[2017-07-01] MEDS ORDERED: MORPHINE SULFATE 4 MG INJ ONE (19:04)
[2017-07-01] MEDS: MORPHINE SULFATE 4 MG INJ IV PRN ×2 (21:07→23:04)
[2017-07-01] MEDS: Pepcid 20 MG VIAL IV SCH (21:46)
[2017-07-02] MEDS: D5W/0.45NS W/ 20mEq KCl 1000 ML 1,000 ML IV SCH ×2 (04:29→18:13)
[2017-07-02] MEDS: MORPHINE SULFATE 4 MG INJ IV PRN ×6 (04:38→18:13)
[2017-07-02] MEDS ORDERED: Zofran 4 MG/2 ML VIAL IV PRN (04:54)
[2017-07-02] MEDS: ENOXAPARIN SODIUM SQ SCH ×2 (05:00→18:13)
[2017-07-02 06:05] LABS: BASOPHIL % 0.4 % (0.0-0.4); Basophil (Absolute #) 0.02 (0-0.4); Eosinophil % 2.3 % (0.00-5.0); Eosinophil (Absolute #) 0.13 (0-0.5); Granulocyte Absolute (ANC) 3.81 (1.4-6.9); Granulocytes % 67.7 % (36.0-66.0); Hemoglobin 11.3 gm/dl (12.0-16.0); Lymphocyte (Absolute #) 1.14 (1.0-4.6); Lymphocytes % 20.3 % (24.0-44.0); Mean Cell Volume 86.3 fl (78-100); Mean Corpuscular Hgb Concent. 31.4 g/dl (32-36); Mean Platelet Volume 11.3 fl (6-9.5); Monocyte (Absolute #) 0.52 (0.0-1.3); Monocytes % 9.3 % (0.0-12.0); Platelet Count 245 K/mm3 (150-450); Red Blood Count 4.17 M/mm3 (4.1-5.4); Red Cell Distribution Width 15.9 % (11.5-14.0); White Blood Count 5.6 K/mm3 (4.0-10.5)
[2017-07-02 06:17] LABS: ALBUMIN 3.7 g/dL (3.5-5.0); ALKALINE PHOSPHATASE 257 U/L (38-126); ANION GAP 15.6 MEQ/L (5-15); BLOOD UREA NITROGEN 4 mg/dL (7-17); CHLORIDE 102 mmol/L (98-107); Calcium 8.8 mg/dL (8.4-10.2); Carbon Dioxide 25 mmol/L (22-30); Creatinine 1 0.63 mg/dL (0.52-1.04); Glucose 100 mg/dL (74-106); Potassium 3.4 mmol/L (3.5-5.1); SGOT/AST 58 U/L (14-36); SGPT/ALT 41 U/L (0-35); SODIUM 139 mmol/L (137-145); Total Protein 7.2 g/dL (6.3-8.2)
--- NOTE | 2017-07-02 07:14 | PCM.HP ---
History of Present Illness - Chief Complaint Chief Complaint: pne, uti, bilat pe Date: 07/02/17 History of Present Illness: is a 27 year old female. she developed sharp right sided chest pains 5 days ago and 2 days ago she developed fever, chills, vomiting and the pain was much worse. She had several members of her household with the same symptoms. She is 5weeks post op and was breast feeding but has not breast fed for 5 days due to the illness. The chest pain is right sided, sharp severe and worse with palpation and deep breaths or coughing. It radiates to the side. She is feeling a little better this am she thinks but the pain is still severe. she denies any family history of blood clots no swelling or pain in her calfs. - Review of Systems Constitutional: Fever, Chills, Fatigue Eyes: No Symptoms Ears, Nose, & Throat: No Symptoms Respiratory: Cough, No Short Of Breath Cardiac: Chest Pain, No Edema, No Syncope Abdominal/Gastrointestinal: Abdominal Pain, Nausea, Vomiting, Diarrhea Genitourinary Symptoms: No Dysuria Musculoskeletal: No Back Pain, No Neck Pain Skin: No Rash Neurological: No Dizziness, No Focal Weakness, No Sensory Changes Psychological: No Symptoms Endocrine: No Symptoms Hematologic/Lymphatic: No Symptoms Immunological/Allergic: No Symptoms Medications & Allergies Home Medications: Home Medication List No Reportable Medications [No Reported Medications] 07/01/17 [History Confirmed 07/01/17] Allergies/Adverse Reactions: Allergies Allergy/AdvReac Type Severity Reaction Status Date / Time No Known Drug Allergies Allergy Verified 05/24/17 12:55 - Past Medical History Past Medical History: Yes Neurological History: Migraines ENT History: No Pertinent History Cardiac History: No Pertinent History Respiratory History: Asthma Endocrine Medical History: No Pertinent History Musculoskelatal History: No Pertinent History GI Medical History: GERD, Gallbladder Disease History: No Pertinent History Pyscho-Social History: Anxiety, Panic Disorder Reproductive Disorders: No Pertinent History - Female History Hx Last Menstrual Period: 08/20/2016 Are you now?: No - Past Surgical History Past Surgical History: Yes Neuro Surgical History: No Pertinent History Cardiac History: No Pertinent History Respiratory Surgery: No Pertinent History GI Surgical History: Cholecystectomy Musculskeletal Surgical Hx: Other Female Surgical History: Section, Other Other Surgical History: etopic ,rt hand - Social History Smoking Status: Former smoker How long have you smoked: YRS Exposure to second hand smoke: Yes Alcohol: None Drug Use: none Significant Family History: no pertinent family hx - Physical Exam Vital Signs: Vital Signs - 24 hr Temp Pulse Resp BP Pulse Ox 07/02/17 04:00 98.3 F 95 H 18 163/93 95 07/02/17 00:14 99.7 F 105 H 18 131/83 96 07/01/17 20:00 99.5 F 95 H 22 131/77 94 L 07/01/17 17:27 99 H 16 96 07/01/17 16:55 100.4 F 101 H 14 122/74 96 07/01/17 16:53 96 07/01/17 15:50 101 H 07/01/17 15:40 95 H 14 118/77 94 L 07/01/17 15:27 99 07/01/17 14:50 92 H 07/01/17 14:40 95 H 16 120/73 96 07/01/17 13:50 109 H 16 131/83 98 07/01/17 12:50 110 H 18 97 07/01/17 12:48 108 H 22 139/85 95 07/01/17 12:36 115 H 18 139/85 97 07/01/17 11:48 101.6 F 128 H 26 H 96/60 98 General Appearance: no apparent distress, alert, obese Neurologic Exam: alert, oriented x 3, cooperative, normal mood/affect, nml cerebellar function, nml station & gait, sensation nml, No motor deficits Eye Exam: PERRL/EOMI, eyes nml inspection, No scleral icterus, No pale conjunctivae Ears, Nose, Throat Exam: normal ENT inspection, pharynx normal, moist mucous membranes, other (poor dentition) Neck Exam: normal inspection, non-tender, supple, full range of motion Respiratory Exam: normal breath sounds, chest tenderness (right sided reproduces pain), lungs clear, No respiratory distress Cardiovascular Exam: normal heart sounds, normal peripheral pulses, tachycardia Gastrointestinal/Abdomen Exam: soft, normal bowel sounds, No tenderness, No mass Back Exam: normal inspection, normal range of motion, No CVA tenderness, No vertebral tenderness Extremity Exam: normal inspection, normal range of motion, pelvis stable Skin Exam: normal color, warm, dry, No rash Lymphatic Exam: No adenopathy Results - Labs Lab/Micro Results: Lab Results-Last 24 Hours 07/02/17 07/02/17 Range/Units 05:10 05:10 WBC 5.6 (4.0-10.5) K/mm3 RBC 4.17 (4.1-5.4) M/mm3 Hgb 11.3 L (12.0-16.0) gm/dl Hct 36.0 (35-47) % MCV 86.3 (78-100) fl MCH 27.0 (26-32) pg MCHC 31.4 L (32-36) g/dl RDW 15.9 H (11.5-14.0) % Plt Count 245 (150-450) K/mm3 MPV 11.3 H (6-9.5) fl Gran % 67.7 H (36.0-66.0) % Lymphocytes % 20.3 L (24.0-44.0) % Monocytes % 9.3 (0.0-12.0) % Eosinophils % 2.3 (0.00-5.0) % Basophils % 0.4 (0.0-0.4) % Basophils # 0.02 (0-0.4) Sodium 139 (137-145) mmol/L Potassium 3.4 L (3.5-5.1) mmol/L Chloride 102 (98-107) mmol/L Carbon Dioxide 25 (22-30) mmol/L Anion Gap 15.6 H (5-15) MEQ/L BUN 4 L (7-17) mg/dL Creatinine 0.63 (0.52-1.04) mg/dL Estimated GFR > 60 ML/MIN Glucose 100 (74-106) mg/dL Calcium 8.8 (8.4-10.2) mg/dL Total Bilirubin 0.20 (0.2-1.3) mg/dL AST 58 H (14-36) U/L ALT 41 H (0-35) U/L Alkaline Phosphatase 257 H (38-126) U/L Serum Total Protein 7.2 (6.3-8.2) g/dL Albumin 3.7 (3.5-5.0) g/dL Assessment/Plan (1) Pneumonia Current Visit: Yes Status: Acute Assessment & Plan: delivery with tubal ligation 2/7/17 on rocephin and azithromycin will use some solu cortef to help with the pleurisy pain and change to prednisone when tolerating po as well as morphine prn Code(s): J18.9 - PNEUMONIA, UNSPECIFIED ORGANISM (2) Pulmonary emboli Current Visit: Yes Status: Acute Qualifiers: Pulmonary embolism type: other Chronicity: acute Acute cor pulmonale presence: without acute cor pulmonale Qualified Code(s): I26.99 - Other pulmonary embolism without acute cor pulmonale Assessment & Plan: Bilateral nonoccluding on therapeutic lovenox provoked with recent delivery continue lovenox for now with her vomiting not tolerating po well consider switch to xarelto or eliquis when tolerating po Code(s): I26.99 - OTHER PULMONARY EMBOLISM WITHOUT ACUTE COR PULMONALE (3) Mother currently breast-feeding Current Visit: Yes Status: Acute Assessment & Plan: pump and dump for now planned she was already using formule for the last 5 days prior to admission Code(s): [id number] -
[2017-07-02] MEDS ORDERED: solu-CORTEF 100MG IV ONE (07:36)
[2017-07-02] MEDS: Pepcid 20 MG VIAL IV SCH ×2 (09:28→21:42)
[2017-07-02] MEDS: ROCEPHIN 1 Gm-D5w 50 ml Bag** 1 G/50 ML IVPB IV SCH (09:28)
[2017-07-02] MEDS: Zithromax 500 MG/ 250 ML NaCl Premix 500 MG/250 ML IVPB IV SCH (10:46)
[2017-07-02] MEDS: NORCO 5/325 MG PO PRN (21:41)
[2017-07-03] MEDS: NORCO 5/325 MG PO PRN ×2 (02:01→06:04)
[2017-07-03] MEDS: D5W/0.45NS W/ 20mEq KCl 1000 ML 1,000 ML IV SCH (04:16)
[2017-07-03] MEDS: ENOXAPARIN SODIUM SQ SCH ×2 (05:58→18:08)
--- NOTE | 2017-07-03 09:07 | PCM.NOTE ---
Date and Time: 07/03/17 0900 OBJECTIVE DATA Vital Signs: Vital Signs - 24 hr Temp Pulse Resp BP BP Pulse Ox 07/03/17 07:46 97.8 F 70 78 H 124/68 97 07/03/17 04:10 97.7 F 72 14 123/66 93 L 07/03/17 00:15 97.7 F 71 20 126/78 94 L 07/02/17 20:00 98.7 F 77 14 132/76 93 L 07/02/17 17:00 95 07/02/17 16:00 18 07/02/17 15:45 98.3 F 94 H 18 129/87 95 07/02/17 12:00 98.1 F 97 H 20 148/89 95 07/02/17 11:50 18 Pain Assessment - Last Documented Pain Intensity 9 Pain Scale Used 0-10 Pain Scale Intake and Output: Intake & Output 06/30/17 07/01/17 07/02/17 07/03/17 11:59 11:59 11:59 11:59 Intake Total 240 3097 Output Total 1050 Balance 240 2047 Assessment/Plan (1) Pneumonia Current Visit: Yes Status: Acute Assessment & Plan: continue azithromycin and rocephin received hydrocortisone iv yesterday for pleurisy pain with her vomiting today will change to prednisone to help pleurisy pain Code(s): J18.9 - PNEUMONIA, UNSPECIFIED ORGANISM (2) Pulmonary emboli Current Visit: Yes Status: Acute Qualifiers: Pulmonary embolism type: other Chronicity: acute Acute cor pulmonale presence: without acute cor pulmonale Qualified Code(s): I26.99 - Other pulmonary embolism without acute cor pulmonale Assessment & Plan: provoked on therapeutic lovenox discussed she would prefer a novel anticoagulant will see if insurance will cover xarelto on gi ppx with pepcid with the anticoagulation and prednisone Code(s): I26.99 - OTHER PULMONARY EMBOLISM WITHOUT ACUTE COR PULMONALE (3) Mother currently breast-feeding Current Visit: Yes Status: Acute Code(s): [id number] -
[2017-07-03] MEDS: ROCEPHIN 1 Gm-D5w 50 ml Bag** 1 G/50 ML IVPB IV SCH (09:43)
[2017-07-03] MEDS: Pepcid 20 MG PO SCH ×2 (09:47→22:00)
[2017-07-03] MEDS: PERCOCET TABLET 5/325MG PO PRN ×4 (09:47→22:00)
[2017-07-03] MEDS: Zithromax 500 MG/ 250 ML NaCl Premix 500 MG/250 ML IVPB IV SCH (09:48)
[2017-07-03] MEDS ORDERED: DELTASONE 20 MG PO SCH (10:00)
[2017-07-04] MEDS: PERCOCET TABLET 5/325MG PO PRN ×2 (03:57→08:36)
[2017-07-04] MEDS: ENOXAPARIN SODIUM SQ SCH (06:55)
[2017-07-04 07:29] VITALS: BP 132/78; PULSE 72; O2SAT 96
--- NOTE | 2017-07-04 08:38 | PCM.DS ---
Discharge Summary Date of Admission: 07/02/17 07:37 Admitting Physician: KAREN DIAMOND Primary Care Provider: KAREN DIAMOND Allergies Allergies No Known Drug Allergies Allergy (Verified 05/24/17 12:55) Hospital Summary - Hospital Course Hospital Course: patient was admitted with cough and chest pain, found to have pneumonia and bilateral non-occluding PE. doing much better now, pain is controlled at this time. - Vitals & Intake/Output Vital Signs: Vital Signs Temperature 97.7 F 07/04/17 07:28 Pulse Rate 72 07/04/17 07:28 Respiratory Rate 20 07/04/17 07:28 Blood Pressure 132/78 07/04/17 07:28 O2 Sat by Pulse Oximetry 96 07/04/17 07:28 Intake & Output: Intake & Output 07/01/17 07/02/17 07/03/17 07/04/17 11:59 11:59 11:59 11:59 Intake Total 240 3337 2760 Output Total 1050 1225 Balance 240 2287 1535 Weight 94.2 kg 92.3 kg - Lab Result Diagrams: 07/02/17 05:10 07/02/17 05:10 Discharge Exam General Appearance: no apparent distress, alert Skin Exam: normal color, warm, dry Respiratory Exam: normal breath sounds, lungs clear, No respiratory distress Cardiovascular Exam: regular rate/rhythm, normal heart sounds Gastrointestinal/Abdomen Exam: soft, other (incision well healed), No tenderness , No mass Extremity Exam: normal inspection, normal range of motion Final Diagnosis/Problem List - Final Discharge Diagnosis/Problem (1) Pneumonia Current Visit: Yes Status: Acute Assessment & Plan: home on augmentin x 7 days (2) Pulmonary emboli Current Visit: Yes Status: Acute Assessment & Plan: continue percocet for severe pleuritic pain (3) delivery delivered Current Visit: Yes Status: Acute - Discharge Disposition: Home, Self-Care Condition: Good Prescriptions: New Amoxicillin/Potassium Clav [Augmentin 500-125 Tablet] 1 each PO TID #21 tablet Prednisone 20 mg [Deltasone 20 mg] 40 mg PO DAILY #14 tablet Oxycodone/APAP 5 mg/325 mg [Percocet Tablet 5/325Mg] 2 tab PO Q4H PRN PRN #60 tablet MDD 12 PRN Reason: Pain Rivaroxaban [Xarelto] 15 mg PO BID #42 tablet Follow up with: KAREN DIAMOND MD [Primary Care Provider] - 1 Week
== END 2017-07-04 09:25 | disposition home or self-care (01) | DRG 776 ==
LOC: ED 11:46 → MED SURG 16:48 → OBSVTOIN 07-02 07:37
PROVIDERS: ADMIT Family Medicine; ATTEND Family Medicine
DX: O88.23 Thromboembolism in the puerperium (principal)
CPT/HCPCS: 36000; 36415; 36600; 71045; 71260; 80053; 81000; 82375; 82803; 82962; 83605; 83690; 84484; 84702; 85025; 85610; 85652; 85730; 87040; 87086; 87631; 93005; 93268; 94760; 96372; 96374; 99285; G0378; J0456; J0696; J1650; J1720; J2270; J2405; J2550; J3010; P9612; A9270-GY